=== PATIENT | male | born 2000 | race Caucasian/White ===

== ENCOUNTER 2022-12-12 13:54 | Emergency (ER) | payer BC ==
[2022-12-12] MEDS ORDERED: Morphine 4 MG/ML VIAL ONE (15:10)
== END 2022-12-12 16:13 | disposition home or self-care (01) ==
LOC: ERS 13:54
DX: S06.330A Contusion and laceration of cerebrum, unspecified, without loss of consciousness, initial encounter (principal); W05.1XXA Fall from non-moving nonmotorized scooter, initial encounter
CPT/HCPCS: 96374; J2270

== ENCOUNTER 2022-12-17 08:43 | Emergency (ER) | payer BC ==
[2022-12-17] MEDS ORDERED: Ketorolac Tromethamine 30 MG/ML VIAL ONE ×3 (09:58→10:13)
[2022-12-17] MEDS ORDERED: HYDROcodone/Acetaminophen 5/325 mg Tablet ONE (09:58)
[2022-12-17] MEDS ORDERED: Metoclopramide HCl 10 MG/2 ML VIAL ONE ×2 (09:58→10:13)
[2022-12-17] MEDS ORDERED: Metoclopramide HCl 10 MG TAB ONE (09:59)
== END 2022-12-17 10:19 | disposition home or self-care (01) ==
LOC: ERS 08:43
DX: F07.81 Postconcussional syndrome (principal); K59.00 Constipation, unspecified; K66.1 Hemoperitoneum
CPT/HCPCS: 96372; 99283; J1885; J2765